=== PATIENT | male | born 1955 | race Two or more races ===

== ENCOUNTER 2021-08-15 06:00 | Day surgery (SDC) | payer OTHER ==
[~2021-08-15 06:00] MED LIST: CARVEDILOL6.25 MG; FOLIC ACID0.8 M1 PO; GABAPENTIN300 M2 PO; JANUMET 50-5001 EACH PO; JARDIANCE10 MG PO; PLAVIX75 MG PO; TREXALL5 MG PO
== END 2021-08-15 15:25 | disposition home or self-care (01) ==
LOC: CIR.AMB 06:00
PROVIDERS: ATTEND Surgery Surgery of the Hand
DX: M65.841 Other synovitis and tenosynovitis, right hand (principal); I25.10 Atherosclerotic heart disease of native coronary artery without angina pectoris; I25.2 Old myocardial infarction; Z95.5 Presence of coronary angioplasty implant and graft; Z20.822 Contact with and (suspected) exposure to COVID-19